=== PATIENT | male | born 1955 ===

== ENCOUNTER 2022-04-16 15:15 | Outpatient (CLI) | payer OTHER | END 2022-04-16 15:16 | disposition home or self-care (01) | LOC: ULT 15:15 | PROVIDERS: ATTEND Orthopaedic Surgery | DX: M67.911 Unspecified disorder of synovium and tendon, right shoulder (principal); M75.121 Complete rotator cuff tear or rupture of right shoulder, not specified as traumatic; M75.81 Other shoulder lesions, right shoulder | CPT/HCPCS: 76882 ==